=== PATIENT | female | born 1995 | race Caucasian/White ===

== ENCOUNTER 2019-11-18 00:42 | Emergency (ER) | payer OTHER ==
[~2019-11-18] VITALS: Ht 157.5 cm; Wt 54.4 kg
[2019-11-18 00:50] VITALS: BP 139/84
--- NOTE | 2019-11-18 00:54 | NUR ---
pt ambulated to ER bed 11
--- NOTE | 2019-11-18 00:55 | NUR ---
SEIZURE PADS IN PLACE
--- NOTE | 2019-11-18 00:55 | NUR ---
24 Y/O FEMALE REPORTS SHE THINKS SHE HAD A SEIZURE AT APPROXIMATELY 0030. PT STATES LOST CONSCIOUSNESS AT APPROXIMATELY 0030 AND CANNOT RECALL EVENTS REGARDING CIRCUMSTANCE. PT'S INFORMED PT SHE APPEARED TO HAVE A SEIZURE. PT STATES SHE HAD A SIMILAR EXPERIENCE 2 MONTHS AGO FOR THE FIRST TIME. PT DENIES INCONTINENCE. PT RR EVEN AND UNLABORED AND O2 SAT 100% ON ROOM AIR. PT APPEARS TO BE ANXIOUS AND HR 132. DENIES N/V/D; SKIN IS PINK/WARM/DRY; AAOX4 WITH EVEN AND STEADY GAIT; PT DENIES ANY FEVER, CP, SOB, OR COUGH AT THIS TIME; PATIENT STATES PAIN OF 0/10 AT THIS TIME; PATIENT POSITIONED FOR COMFORT AND SEIZURE PRECAUTIONS IN PLACE; HOB ELEVATED; BEDRAILS UP X2; BED DOWN AND WHEELS LOCKED. ER MD MADE AWARE OF PT STATUS. MEDICAL HX: PT DENIES NKA
[2019-11-18] MEDS ORDERED: NACL 0.9% 1,000 ML IV ONE (01:20)
[2019-11-18] MEDS ORDERED: LORazepam 2 MG/ML VIAL IVP ONE (01:20)
[2019-11-18] MEDS ORDERED: levETIRAcetam 100 MG/ML VIAL IV ONE (01:33)
[2019-11-18] MEDS ORDERED: levETIRAcetam 500 MG in NACL 0.9% 100 ML IV ONE (01:45)
--- NOTE | 2019-11-18 01:47 | NUR ---
PT RESTING IN POSITION OF COMFORT, 2 SIDERAILS UP, BED LOW AND LOCKED, SEIZURE PADS IN PLACE, PT ON MONITOR. RR EVEN AND UNLABORED. HR 119 POST ATIVAN ADMINISTRATION. WILL CONTINUE TO MONITOR
--- NOTE | 2019-11-18 02:20 | NUR ---
PT HR AT 108. PT STATES "I FEEL BETTER." WILL CONTINUE TO MONITOR.
--- NOTE | 2019-11-18 02:35 | NUR ---
Patient discharged with v/s stable;Written and verbal after care instructions given and explained BY DR. OBRIEN. Patient alert, oriented and verbalized understanding of instructions. Ambulatory with steady gait. All questions addressed prior to discharge. ID band removed. Patient advised to follow up with PMD. Rx of KEPPRA given. Patient educated on indication of medication including possible reaction and side effects. Opportunity to ask questions provided and answered.
[2019-11-18 02:40] VITALS: BP 105/62
[2019-11-18] MEDS ORDERED: levETIRAcetam 500 MG in NACL 0.9% 100 ML IV SCH (09:00)
== END 2019-11-18 02:35 | disposition home or self-care (01) ==
LOC: MED 00:42
DX: G40.909 Epilepsy, unspecified, not intractable, without status epilepticus (principal); Z98.890 Other specified postprocedural states
CPT/HCPCS: 96365; 96375; 99291; J1953; J2060; J7030